=== PATIENT | female | born 1975 | race Hispanic/Latino ===

== ENCOUNTER 2020-03-04 07:52 | Emergency (ER) | payer OTHER ==
[~2020-03-04] VITALS: Ht 167.6 cm; Wt 96.6 kg
--- NOTE | 2020-03-04 08:00 | Emergency Department Note ---
History of Present Illnes History of Present Illness History of Present Illness This is a 44 year old female . Arrival Mode: Car (NUSRAT LOPEZ DO) Past Medical/Family History Physician Review I have reviewed the patient's past medical and family history. Any updates have been documented here. (NUSRAT LOPEZ DO) Physical Exam Related Data Allergies: Coded Allergies: No Known Allergies (Unverified , 03/04/20) Physical Exam CONSTITUTIONAL Constitutional: Present distressed, Present ill appearing HENT HENT: Present normocephalic, Present atraumatic, Present oropharynx clear/moist, Present nose normal HENT L/R: Present left ext ear normal, Present right ext ear normal EYES Eyes: Reports PERRL, Reports conjunctivae normal NECK Neck: Present ROM normal PULMONARY Pulmonary: Present respiratory distress CARDIOVASCULAR Cardiovascular: Present regular rhythm, Present heart sounds normal, Present capillary refill normal, Present normal rate GASTROINTESTINAL Abdominal: Present soft, Present nontender, Present bowel sounds normal GENITOURINARY Genitourinary: Present exam deferred SKIN Skin: Present warm, Present dry MUSCULOSKELETAL Musculoskeletal: Present ROM normal NEUROLOGICAL Neurological: Present alert, Present oriented x 3, Present no gross motor or sensory deficits PSYCHOLOGICAL Psychological: Present mood/affect normal, Present judgement normal (NUSRAT LOPEZ DO) Results Laboratory Lab results reviewed: Yes Laboratory comments CBC : leukopenia CMP : mild hyponatremia (NUSRAT LOPEZ DO) Imaging Imaging results reviewed: Yes Impressions [place] [id number] Patient Name: URMILA POLO MR #: [id number] : 1975 Age/Sex: 44/F Req #: [id number] Adm Physician: Ordered by: NUSRAT LOPEZ DO Report #: [id number] Location: ER Room/Bed: Procedure: [id number] DX/CHEST SINGLE (PORTABLE) Exam Date: Exam Time: REPORT STATUS: Signed EXAM: CHEST SINGLE (PORTABLE) DATE: 03/04/2020 9:43 AM INDICATION: Cough, shortness of breath COMPARISON: None FINDINGS: The trachea is midline. There are patchy increased interstitial and airspace opacities present bilaterally with a lower lung zone predominance. There is no evidence for lobar consolidation, pneumothorax, or significant pleural effusion. The cardiomediastinal silhouette is within normal limits. No acute osseous abnormalities identified. The surrounding soft tissues are unremarkable. IMPRESSION: Patchy airspace opacities identified throughout the lungs bilaterally which are nonspecific but suggestive of a atypical/viral pneumonitis. Signed by: Dr. Curtis Pelayo MD on 03/04/2020 10:27 AM Dictated By: CURTIS PELAYO MD [id number] Transcribed By: NACHO on 03/04/20 1027 COPY TO: NUSRAT LOPEZ DO~ (NUSRAT LOPEZ DO) Critical Care Time Total Critical Care Time (min): 32 Critcal care necessary due to: respiratory failure Critcal care time spent by me: obtaining hx from patient/surrogate, order/perform tx or interventions, order/review laboratory studies, order/review radiographic studies, pulse oximetry, re-evaluation of patient condition (NUSRAT LOPEZ DO) Assessment & Plan Medical Decision Making MDM PER DR LOPEZ (CHASE KHALIL MD) Reassessment Reassessment ADMINISTRATION INITIATED TRANSFER DUE TO NO COVID BEDS/NO ICU BEDS AVAILABLE HERE - I SPOKE WITH DR BURTON, [facility] WHO ACCEPTS PT FOR TRANSFER (CHASE KHALIL MD) Assessment & Plan Final Impression: (1) Upper respiratory tract infection due to COVID-19 virus (2) Hypoxia (NUSRAT LOPEZ DO) Depart Disposition: TRANS TO OTHER [facility] NUSRAT LOPEZ DO Mar 04, 2020 08:00 CHASE KHALIL MD Mar 05, 2020 14:13
[2020-03-04] MEDS ORDERED: ACETAMINOPHEN 325 MG TAB ONE ×2 (08:21→18:52)
[2020-03-04] MEDS ORDERED: ACETAMINOPHEN 325 MG TAB PO ONE ×2 (08:30→19:00)
[2020-03-04] MEDS ORDERED: ALBUTEROL SULFATE HFA 8GM INHALATION AEROSOL INH PRN ×2 (08:45→20:15)
[2020-03-04 08:51] LABS: HEMATOCRIT 42.9 % (34.2-44.1); HEMOGLOBIN 14.3 g/dL (12.0-16.0); LYMPHOCYTES # (AUTO) 0.7 (1.0-3.2); LYMPHOCYTES % 19.3 % (18.0-39.1); MEAN CORPUSCULAR HEMOGLOBIN 28.7 pg (28-32); MEAN CORPUSCULAR HGB CONC 33.3 g/dL (31-35); MEAN CORPUSCULAR VOLUME 86.1 fL (81-99); MONOCYTES # (AUTO) 0.3 (0.2-0.8); MONOCYTES % 9.6 % (4.4-11.3); NEUTROPHILS # (AUTO) 2.4 (2.1-6.9); NEUTROPHILS % 70.8 % (38.7-80.0); RED BLOOD COUNT 4.98 x10e6/uL (3.6-5.1); RED CELL DISTRIBUTION WIDTH 12.7 % (11.7-14.4)
[2020-03-04 09:13] LABS: PLATELET COUNT 131 x10e3/uL (140-360)
[2020-03-04 09:14] LABS: PLATELET MORPHOLOGY COMMENT FEW EDTA CLUMPING; RBC MORPHOLOGY COMMENT NORMAL
[2020-03-04 09:15] LABS: PLATELET ESTIMATE SLIGHTLY DECREASED
[2020-03-04 09:16] LABS: ALANINE AMINOTRANSFERASE 25 IU/L (0-55); ALBUMIN 3.1 g/dL (3.5-5.0); ALBUMIN/GLOBULIN RATIO 0.8 (0.8-2.0); ALKALINE PHOSPHATASE 40 IU/L (40-150); ANION GAP 11.7 mmol/L (8-16); BLOOD UREA NITROGEN 9 mg/dL (7-26); BUN/CREATININE RATIO 11 (6-25); CALCIUM 8.5 mg/dL (8.4-10.2); CARBON DIOXIDE 25 mmol/L (22-29); CHLORIDE 101 mmol/L (98-107); CREATININE, SERUM 0.81 mg/dL (0.57-1.11); EST GLOMERULAR FILTRATION RATE > 60 ML/MIN (60-); GLUCOSE 114 mg/dL (74-118); POTASSIUM 3.7 mmol/L (3.5-5.1); SODIUM 134 mmol/L (136-145)
--- NOTE | 2020-03-04 10:31 | Diagnostic Imaging Report ---
EXAM: CHEST SINGLE (PORTABLE) DATE: 03/04/2020 9:43 AM INDICATION: Cough, shortness of breath COMPARISON: None FINDINGS: The trachea is midline. There are patchy increased interstitial and airspace opacities present bilaterally with a lower lung zone predominance. There is no evidence for lobar consolidation, pneumothorax, or significant pleural effusion. The cardiomediastinal silhouette is within normal limits. No acute osseous abnormalities identified. The surrounding soft tissues are unremarkable. IMPRESSION: Patchy airspace opacities identified throughout the lungs bilaterally which are nonspecific but suggestive of a atypical/viral pneumonitis. Signed by: Dr. Curtis Pelayo MD on 03/04/2020 10:27 AM
[2020-03-04] MEDS ORDERED: ACETAMINOPHEN 325 MG TAB PO PRN (20:15)
[2020-03-04] MEDS ORDERED: GUAIFENESIN/CODEINE 10 ML CUP PO PRN (20:15)
[2020-03-04] MEDS ORDERED: DEXAMETHASONE SOD PHOS 10 MG/1 ML VIAL IV ONE (21:00)
[2020-03-04] MEDS ORDERED: ZOLPIDEM TARTRATE 5 MG TAB PO PRN (21:00)
[2020-03-04] MEDS ORDERED: ENOXAPARIN SOD INJ 40 MG/0.4 ML SYR SC SCH (21:00)
[2020-03-04] MEDS ORDERED: SODIUM CHLORIDE 0.9% 1000ML 1,000 ML IV ONE (21:15)
[2020-03-04] MEDS ORDERED: CEFTRIAXONE SOD 1 GM/NS 50 ML 50 ML IV SCH (21:15)
[2020-03-04] MEDS: ENOXAPARIN SOD INJ 60 MG/0.6 ML SYR SC SCH (21:30)
[2020-03-04] MEDS ORDERED: AZITHROMYCIN 500MG/NS 250 ML 250 ML IV SCH (22:00)
[2020-03-04 23:15] LABS: CLARITY,URINE CLOUDY (CLEAR); COLOR,URINE YELLOW (YELLOW); KETONES,URINE 1+ (NEGATIVE); LEUKOCYTE ESTERASE ,URINE NEGATIVE (NEGATIVE); NITRITE,URINE NEGATIVE (NEGATIVE); URINE UROBILINOGEN 0.2 mg/dL (0.2 - 1)
[2020-03-04 23:16] LABS: BILIRUBIN,URINE 1+ (NEGATIVE); PROTEIN,URINE DIPSTICK 2+ (NEGATIVE)
[2020-03-04 23:24] LABS: BACTERIA,URINE MANY /HPF; EPITHELIAL CELLS,URINE FEW /LPF; RBC,URINE >50 /HPF (0-5); RENAL EPITHELIAL CELLS,URINE FEW; TRANSITIONAL EPI CELLS,URINE FEW; WBC,URINE (MAN) 21-50 /HPF (0-5)
[2020-03-04] MEDS ORDERED: SODIUM CHLORIDE 0.9% 50ML 50 ML ONE (23:47)
[2020-03-04] MEDS ORDERED: IOPAMIDOL 370 MG/ML 200 ML INFUS..BTL INJ ONE (23:48)
--- NOTE | 2020-03-05 01:00 | Diagnostic Imaging Report ---
EXAM: CT Chest WITH contrast 03/04/2020 11:55 PM INDICATION: ^PE protocol ^[id number] ^2355Shortness of breath COMPARISON: None TECHNIQUE: Chest was scanned utilizing a multidetector helical scanner from the lung apex through the level of the adrenal glands without administration of IV contrast. Coronal and sagittal reformations were obtained. Routine protocol was performed. IV CONTRAST: 100 mL of Omnipaque 300 COMPLICATIONS: None RADIATION DOSE: Total DLP: 465 mGy*cm Estimated effective dose: (DLP x 0.014 x size factor) mSv CTDIvol has been reviewed. It is below the limits set by the Radiation Protocol Committee (RPC). Dose modulation, iterative reconstruction, and/or weight based adjustment of the mA/kV was utilized to reduce the radiation dose to as low as reasonably achievable. FINDINGS: LINES/ TUBES: None. LUNGS AND AIRWAYS: Extensive groundglass consolidations throughout both lungs. No discrete lung mass. PLEURA: The pleural spaces are clear. HEART AND MEDIASTINUM: The thyroid gland is normal. No mediastinal, hilar or axillary lymphadenopathy. The heart is normal in size. There is no pericardial effusion. VESSELS: No pulmonary artery filling defect is identified to the level of the segmental pulmonary artery branches. The main pulmonary artery is normal in caliber. UPPER ABDOMEN: Several subtle homogeneously enhancing hepatic lesions measure up to 1 cm in size (for example image 94, image 101). BONES: The visualized bony thorax is within normal limits. SOFT TISSUES: Unremarkable. IMPRESSION: 1. No pulmonary embolus. 2. Extensive pulmonary airspace disease consistent with provided history of viral pneumonia. 3. Incidental multifocal arterial enhancing hepatic lesions. Differential considerations include flash likely hemangiomas, transient perfusion anomalies, and hypervascular metastasis. A routine liver mass protocol CT scan of the abdomen is recommended when clinically feasible. Signed by: Johnie Gaspar MD on 03/05/2020 12:57 AM
--- NOTE | 2020-03-05 02:02 | Consultation ---
DATE OF CONSULTATION: Pulmonary Critical Care Consultation CHIEF COMPLAINT: Dyspnea and fevers. HISTORY OF PRESENT ILLNESS: The patient is a 44-year-old woman. She has a history of asthma. She uses a rescue inhaler at home. She notes worsening dyspnea and fevers for 8 days. She also reports some cough. Her shortness of breath worsened and she went to the Urgent Care 2 days ago. She received azithromycin and Tessalon with no benefit. She now feels as if she is not getting enough oxygen. She came to the emergency department and was placed on oxygen with Venturi mask. She also had a chest x-ray showing bilateral infiltrates suggestive of covert pneumonia. PAST MEDICAL HISTORY: 1. Asthma as noted above. 2. No prior history of heart disease. 3. No prior history of diabetes. PAST SURGICAL HISTORY: Noncontributory. ALLERGIES: NO KNOWN DRUG ALLERGIES. FAMILY HISTORY: Noncontributory. SOCIAL HISTORY: The patient is not a smoker. She is not a drinker. REVIEW OF SYSTEMS: The patient is afebrile. She denies headache. She does complain of some cough. She has severe dyspnea. She becomes very fatigued. She has no chest pain. She denies nausea or vomiting. She has no diarrhea. She has no leg edema. PHYSICAL EXAMINATION: VITAL SIGNS: The patient is afebrile, but had a T-max of 100.5, respiratory rate is 25, and the pulse is 85. She is saturating 98% on a Venturi mask. HEENT: Shows no facial swelling or erythema. CARDIAC: Reveals regular rate and rhythm with normal S1 and S2. LUNGS: Auscultation of lungs reveals crackles at the bases. There is no wheezing. ABDOMEN: Soft and nontender. There is no rebound or guarding. EXTREMITIES: Show no leg edema or calf tenderness. There is no cyanosis or clubbing. SKIN: Shows no rashes. NEUROLOGICAL: Shows no focal abnormalities. LABORATORY DATA: Sodium is 134. BUN to creatinine ratio is 9 and 0.81. Albumin is 3.1. The white blood cell count is 3.42 and the platelet count is 131. IMPRESSION: 1. Viral pneumonia and coronavirus disease 2019 infection. 2. History of asthma. PLAN: 1. Judicious use of IV fluids. 2. Rocephin and Zithromax. 3. Lovenox. 4. Tylenol. 5. Dexamethasone. The patient is presenting after 8 days and is too late for remdesivir. CT scan of chest with PE protocol. The patient's hypoxia is out of proportion to other symptoms. Because of the possible COVID, she would be at increased risk for pulmonary emboli. MD GER Chamberlain/MORIS /[id number]
--- NOTE | 2020-03-05 08:44 | Diagnostic Imaging Report ---
EXAMINATION: CHEST SINGLE (PORTABLE) INDICATION: Viral pneumonia COMPARISON: Chest CT 03/05/2020, chest radiograph 03/04/2020 FINDINGS: LINES/TUBES:EKG leads overlie the chest. LUNGS:The lungs are moderately inflated. Persistent bilateral patchy airspace opacities. PLEURA:No pleural effusion or pneumothorax. MEDIASTINUM:The cardiomediastinal silhouette appears normal in size and shape. BONES/SOFT TISSUES:No acute osseous injury. ABDOMEN:No free air under the diaphragm. IMPRESSION: Persistent bilateral patchy airspace opacities compatible with known multifocal viral pneumonia. Signed by: Louise Alfred MD on 03/05/2020 8:40 AM
[2020-03-05] MEDS ORDERED: ZINC SULFATE 220 MG CAP PO SCH (09:00)
[2020-03-05] MEDS ORDERED: FAMOTIDINE 20 MG/2 ML VIAL IV SCH (09:00)
[2020-03-05] MEDS ORDERED: MAGNESIUM OXIDE 400 MG TAB PO SCH (09:00)
[2020-03-05 09:23] LABS: HEMATOCRIT 38.1 % (34.2-44.1); HEMOGLOBIN 12.9 g/dL (12.0-16.0); LYMPHOCYTES # (AUTO) 0.5 (1.0-3.2); LYMPHOCYTES % 19.9 % (18.0-39.1); MEAN CORPUSCULAR HEMOGLOBIN 29.3 pg (28-32); MEAN CORPUSCULAR HGB CONC 33.9 g/dL (31-35); MEAN CORPUSCULAR VOLUME 86.4 fL (81-99); MONOCYTES # (AUTO) 0.3 (0.2-0.8); MONOCYTES % 11.2 % (4.4-11.3); NEUTROPHILS # (AUTO) 1.8 (2.1-6.9); NEUTROPHILS % 68.2 % (38.7-80.0); PLATELET COUNT 167 x10e3/uL (140-360); RED BLOOD COUNT 4.41 x10e6/uL (3.6-5.1); RED CELL DISTRIBUTION WIDTH 12.7 % (11.7-14.4)
[2020-03-05] MEDS ORDERED: DEXAMETHASONE SOD PHOS INJ 4 MG/ML VIAL ONE (09:49)
--- NOTE | 2020-03-05 09:51 | NUR ---
SPOKE TO DR LOPEZ AND DR FRAUSTO AND BOTH OK TO TRANSFER TO [facility]
--- NOTE | 2020-03-05 09:57 | History and Physical ---
PRIMARY CARE PHYSICIAN: Mika Tyler MD. CONSULTANTS: 1. Dr. Jam Santiago. 2. Dr. Delano Patel. CHIEF COMPLAINT: COVID-19 pneumonia and worsening hypoxia. HISTORY OF PRESENT ILLNESS: This is a 44-year-old female with history of asthma. The patient using inhaler at home. Apparently for the past week or so, she was having progressive increasing shortness of breath and subsequently developed a fever. She is also having increasing coughing as well. The patient went to the Urgent Care 2 days ago. She did receive azithromycin and Tessalon Perles, but did not improve. The patient then subsequently went to the emergency room here. In the emergency room, the patient was placed on oxygen support venturi mask. She has had chest x-ray done showed bilateral infiltrate suggestive of viral pneumonia, subsequent COVID-19 positive. The patient is on isolation. She received Decadron and Lovenox. CT of the chest obtained due to a pulmonary embolism since this has been going on over a week. The CT of the chest found no PE, but show extensive viral pneumonia consistent with COVID-19. PAST MEDICAL HISTORY: Asthma. PAST SURGICAL HISTORY: Noncontributory. SOCIAL HISTORY: The patient does not smoke or use alcohol. No regular drug use. Lives at home with her family. ALLERGIES: NO KNOWN ALLERGY. HOME MEDICATIONS: Rescue inhaler. PHYSICAL EXAMINATION: VITAL SIGNS: Temperature is 98, blood pressure 126/62, pulse rate is 86, respirations 20-25. GENERAL: The patient is in respiratory insufficiency. She is on now Thermo-vapor with high oxygen flow. HEENT: Normocephalic and atraumatic. Anicteric. NECK: Supple grossly. PULMONARY: Diminished breath sounds significantly with rhonchi. CARDIOVASCULAR: S1, S2. Regular rate and rhythm. ABDOMEN: Soft. EXTREMITIES: No cyanosis or edema. NEUROLOGIC: The patient is awake, alert x3. LABORATORY DATA: WBC 3.4, hemoglobin 14.3, hematocrit 43, platelets is 131. Chemistry; sodium 134, potassium 3.7, chloride 101, bicarb 25, BUN is 9, creatinine 0.8, glucose is 114. Urinalysis, cloudy urine, 2+ protein, 2+ blood, 1+ bilirubin, greater than 50 rbc's, wbc's 50, many bacteria. Urine test is negative. COVID PCR detected. IMPRESSION: 1. Coronavirus disease-2019 pneumonia associated with respiratory failure on Thermo-vapor oxygen high concentration flow support. 2. Baseline history of asthma. 3. Early leukopenia and thrombocytopenia. 4. Urinary tract infection. PLAN: Continue with antibiotics. The patient is getting azithromycin and Rocephin. She is also on Decadron. The patient will benefit Remdesivir, but we will wait for the Infectious Disease doctor to see the patient and clear the patient for the treatment. Continue with high-flow oxygen support. The patient will need an ICU bed. The patient may need transfer if no ICU bed available. Discussed with Dr. Jam Santiago. MD JOE Ortega/MODL /[id number]
[2020-03-05] MEDS: DEXAMETHASONE PHOS 4MG/ML 5ML MULTIDOSE VIAL IV SCH ×2 (10:02→10:20)
[2020-03-05] MEDS: ENOXAPARIN SOD INJ 60 MG/0.6 ML SYR SC SCH (10:02)
[2020-03-05 10:07] LABS: ALANINE AMINOTRANSFERASE 21 IU/L (0-55); ALBUMIN 2.7 g/dL (3.5-5.0); ALBUMIN/GLOBULIN RATIO 0.8 (0.8-2.0); ALKALINE PHOSPHATASE 34 IU/L (40-150); BLOOD UREA NITROGEN 7 mg/dL (7-26); BUN/CREATININE RATIO 10 (6-25); CARBON DIOXIDE 26 mmol/L (22-29); CHLORIDE 103 mmol/L (98-107); CREATININE, SERUM 0.72 mg/dL (0.57-1.11); EST GLOMERULAR FILTRATION RATE > 60 ML/MIN (60-); GLUCOSE 147 mg/dL (74-118); SODIUM 138 mmol/L (136-145)
[2020-03-05 10:51] LABS: ABG HCO3 25 mmol/L (22-26); ABG PCO2 38 mmHg (35-45); ABG PH 7.43 (7.35-7.45); ABG PO2 125 mmHg (80-105)
[2020-03-05] MEDS ORDERED: SODIUM CHLORIDE 0.9% 1000ML 1,000 ML ONE (11:09)
--- NOTE | 2020-03-05 13:04 | NUR ---
Dyspnea and fevers.covid 19 thank you for asthma see this patient Patient was seen and examined in the emergency room chart reviewed and discussed with ER physician discussed with the patient HISTORY OF PRESENT ILLNESS: The patient is a 44-year-old woman. [place] female who has history of asthma and obesity patient comes in to the emergency room with shortness of breath and cough for a few days. She has a history of asthma. She uses a rescue inhaler at home. She notes worsening dyspnea and fevers for 8 days. She also reports some cough. Her shortness of breath worsened and she went to the Urgent Care 2 days ago. She received azithromycin and Tessalon with no benefit. She now feels as if she is not getting enough oxygen. She came to the emergency department and was placed on oxygen with Venturi mask. She also had a chest x-ray showing bilateral infiltrates suggestive of covert pneumonia. PAST MEDICAL HISTORY: 1. Asthma as noted above. 2. No prior history of heart disease. 3. No prior history of diabetes. PAST SURGICAL HISTORY: Noncontributory. ALLERGIES: NO KNOWN DRUG ALLERGIES. FAMILY HISTORY: Noncontributory. SOCIAL HISTORY: The patient is not a smoker. She is not a drinker. REVIEW OF SYSTEMS:the patient to us she says she is short of breath she says she is feeling better since she came here The patient is afebrile. She denies headache. She does complain of some cough. She has severe dyspnea. She becomes very fatigued. She has no chest pain. She denies nausea or vomiting. She has no diarrhea. She has no leg edema. PHYSICAL EXAMINATION: VITAL SIGNS: The patient is afebrile, but had a T-max of 100.5, respiratory rate is 25,patient is obese and the pulse is 85. She is saturating 98% on a Venturi mask. HEENT: Shows no facial swelling or erythema. normocephalic CARDIAC: Reveals regular rate and rhythm with normal S1 and S2. LUNGS: Auscultation of lungs reveals crackles at the bases. There is no wheezing. ABDOMEN: Soft and nontender. There is no rebound or guarding. EXTREMITIES: Show no leg edema or calf tenderness. There is no cyanosis or clubbing. SKIN: Shows no rashes. NEUROLOGICAL: Shows no focal abnormalities. LABORATORY DATA: Sodium is 134. BUN to creatinine ratio is 9 and 0.81. Albumin is 3.1. The white blood cell count is 3.42 and the platelet count is 131. IMPRESSION: respiratory failure Viral pneumonia and coronavirus disease 2019 infection. History of asthma. history of obesity concern superimposed bacterial pneumonia community-acquired PLAN: admit the patient continue with droplet isolation covert 19 isolation 1. Judicious use of IV fluids. 2. Rocephin and Zithromax.to finish 5 days of Rocephin 3 days of azithromycin 3. Lovenox. 0.5 g/kg subcu every 12 hours 4. Tylenol. 5. Dexamethasone. 6 mg IV push every 24 hours for 10 days discussed with the patient to the possibility of from the severe will give if available The patient has been sick for 8 days There are plans for her to be transferred to another facility for higher level of care .
[2020-03-05 13:33] VITALS: BP 117/82
[2020-03-05] MEDS ORDERED: DEXAMETHASONE SOD PHOS 10 MG/1 ML VIAL IV SCH (21:00)
== END 2020-03-05 13:27 | disposition short-term general hospital (02) ==
LOC: ER 09:40 → ERHOLD 17:42 → UNDOADMIN 17:42 → IMCU 03-05 09:40 → ERHOLD 03-05 09:40
DX: U07.1 COVID-19 (principal); R09.02 Hypoxemia; R50.9 Fever, unspecified; R05 Cough; J06.9 Acute upper respiratory infection, unspecified; E87.1 Hypo-osmolality and hyponatremia
CPT/HCPCS: 36415 ×2; 36600; 71045 ×2; 71260; 80053 ×2; 81001; 81025; 82805; 85025 ×2; 87635; 99284; J0456; J0696; J1100 ×2; J1650 ×2; J7030 ×2; Q9967